=== PATIENT | female | born 1990 | race Asian ===

== ENCOUNTER 2023-08-23 10:33 | Outpatient (CLI) | payer OTHER | END 2023-08-23 10:34 | disposition home or self-care (01) | LOC: CSHCT 10:33 | PROVIDERS: ATTEND Student in an Organized Health Care Education/Training Program | DX: J32.9 Chronic sinusitis, unspecified (principal); J32.2 Chronic ethmoidal sinusitis; J32.1 Chronic frontal sinusitis ==